=== PATIENT | male | born 1990 | race Caucasian/White ===

== ENCOUNTER 2020-04-26 23:25 | Observation (INO) ==
[2020-04-27] MEDS ORDERED: D5% in 0.45% NACL w KCl 20 MEQ/1,000 ML MLS IVC PRN (03:20)
[2020-04-27] MEDS ORDERED: *HR* Dextrose 50 % in Water (Vial) 50 ML VIAL IVP PRN (03:20)
[2020-04-27] MEDS ORDERED: D5% in 0.45% NACL 1,000 ML IVC PRN (03:20)
[2020-04-27] MEDS ORDERED: Insulin Regular, Human 100 UNIT/ML IV PRN (03:20)
[2020-04-27] MEDS ORDERED: Acetaminophen 325 MG TABLET PO PRN (03:26)
[2020-04-27] MEDS ORDERED: Ondansetron 4 MG/2 ML VIAL IVP PRN (03:26)
[2020-04-27] MEDS ORDERED: Naloxone 0.4 MG/ML INJ IVP PRN (03:28)
[2020-04-27] MEDS ORDERED: Insulin Human Regular 100 UNIT in 0.9 % Sodium Chloride 100 ML IVC SCH (03:30)
[2020-04-27] MEDS ORDERED: 0.9 % Sodium Chloride 1,000 ML IVC SCH (03:30)
[2020-04-27 05:05] LABS: VBG HCO3 26 mEq/L (21-27); VBG PCO2 44 mmHg (41-51); VBG PH 7.38 pH Units (7.32-7.42); VBG PO2 68 mmHg (25-50)
[2020-04-27 05:16] LABS: BUN/Creatinine Ratio 18 (6-26); Blood Urea Nitrogen 16 mg/dL (6-20); Calcium 7.9 mg/dL (8.6-10.3); Carbon Dioxide 25 mEq/L (23-29); Chloride 102 mEq/L (98-107); Glucose 342 mg/dL (70-105); Osmolality,Calculated 291 (280-300); Potassium 4.2 mEq/L (3.5-5.1); Sodium 133 mEq/L (136-145); eGFR For African Americans > 60 (> 60); eGFR For Non-African Americans > 60 (> 60)
[2020-04-27] MEDS: *HR* Heparin 5,000 UNIT/ML VIAL SQ SCH ×3 (05:17→20:30)
[2020-04-27] MEDS: 0.9 % Sodium Chloride w KCl 20 MEQ/1,000 ML MLS IVC SCH ×2 (05:18→15:47)
[2020-04-27 06:43] LABS: VBG HCO3 26 mEq/L (21-27); VBG PCO2 41 mmHg (41-51); VBG PH 7.41 pH Units (7.32-7.42); VBG PO2 238 mmHg (25-50)
[2020-04-27 07:57] LABS: BUN/Creatinine Ratio 18 (6-26); Blood Urea Nitrogen 16 mg/dL (6-20); Carbon Dioxide 24 mEq/L (23-29); Chloride 106 mEq/L (98-107); Glucose 223 mg/dL (70-105); Osmolality,Calculated 290 (280-300); Potassium 3.8 mEq/L (3.5-5.1); Sodium 136 mEq/L (136-145); eGFR For African Americans > 60 (> 60); eGFR For Non-African Americans > 60 (> 60)
[2020-04-27 09:10] LABS: VBG HCO3 27 mEq/L (21-27); VBG PCO2 50 mmHg (41-51); VBG PH 7.34 pH Units (7.32-7.42); VBG PO2 129 mmHg (25-50)
[2020-04-27 09:26] LABS: BUN/Creatinine Ratio 17 (6-26); Blood Urea Nitrogen 15 mg/dL (6-20); Calcium 8.2 mg/dL (8.6-10.3); Carbon Dioxide 26 mEq/L (23-29); Chloride 107 mEq/L (98-107); Glucose 112 mg/dL (70-105); Osmolality,Calculated 288 (280-300); Potassium 3.9 mEq/L (3.5-5.1); Sodium 138 mEq/L (136-145); eGFR For African Americans > 60 (> 60); eGFR For Non-African Americans > 60 (> 60)
[2020-04-27] MEDS ORDERED: Insulin DETEMIR 100 UNIT/ML X5UNITS SUBQ ONE (10:08)
[2020-04-27] MEDS ORDERED: D5% in Water 1,000 ML IVC PRN (10:11)
[2020-04-27] MEDS ORDERED: Dextrose Gel 15 GM/37.5 ML TUBE PO PRN ×2 (10:11)
[2020-04-27 10:42] LABS: Estimated Average Glucose 298 mg/dl
[2020-04-27 11:21] LABS: VBG HCO3 25 mEq/L (21-27); VBG PCO2 43 mmHg (41-51); VBG PH 7.38 pH Units (7.32-7.42); VBG PO2 163 mmHg (25-50)
[2020-04-27 11:42] LABS: BUN/Creatinine Ratio 17 (6-26); Blood Urea Nitrogen 14 mg/dL (6-20); Calcium 7.6 mg/dL (8.6-10.3); Carbon Dioxide 24 mEq/L (23-29); Chloride 105 mEq/L (98-107); Glucose 128 mg/dL (70-105); Osmolality,Calculated 284 (280-300); Potassium 3.8 mEq/L (3.5-5.1); Sodium 136 mEq/L (136-145); eGFR For African Americans > 60 (> 60); eGFR For Non-African Americans > 60 (> 60)
[2020-04-27] MEDS: Insulin LISPRO 300 UNITS/3 ML VIAL SUBQ SCH ×2 (12:49→17:17)
[2020-04-27 13:01] LABS: VBG HCO3 25 mEq/L (21-27); VBG PCO2 45 mmHg (41-51); VBG PH 7.36 pH Units (7.32-7.42); VBG PO2 188 mmHg (25-50)
[2020-04-27 13:17] LABS: BUN/Creatinine Ratio 18 (6-26); Blood Urea Nitrogen 15 mg/dL (6-20); Calcium 7.8 mg/dL (8.6-10.3); Carbon Dioxide 24 mEq/L (23-29); Chloride 105 mEq/L (98-107); Glucose 261 mg/dL (70-105); Osmolality,Calculated 286 (280-300); Potassium 3.9 mEq/L (3.5-5.1); Sodium 133 mEq/L (136-145); eGFR For African Americans > 60 (> 60); eGFR For Non-African Americans > 60 (> 60)
[2020-04-27] MEDS: 0.9 % Sodium Chloride 1,000 ML IVC SCH (15:46)
[2020-04-27] MEDS: 0.45 % Sodium Chloride w/KCl 20 MEQ/1,000 ML MLS IVC SCH (15:47)
[2020-04-27] MEDS: Acetaminophen 325 MG TABLET PO PRN (17:16)
[2020-04-27] MEDS: Gabapentin 400 MG CAPSULE PO SCH (20:30)
[2020-04-27] MEDS ORDERED: Insulin LISPRO 300 UNITS/3 ML VIAL SUBQ SCH (21:00)
[2020-04-28] MEDS: Acetaminophen 325 MG TABLET PO PRN (00:08)
[2020-04-28] MEDS: *HR* Heparin 5,000 UNIT/ML VIAL SQ SCH ×2 (05:34→12:10)
[2020-04-28 06:42] LABS: Basophils % 0.2 %; Hemoglobin 15.2 g/dL (12.9-16.9); Immature Granulocytes % 0.2 % (0-4); Lymphocytes % 18.8 %; Mean Corpuscular HGB Conc 34.5 g/dL (31.6-35.5); Mean Corpuscular Hemoglobin 31.3 pg (28.0-33.3); Mean Corpuscular Volume 90.5 fL (83.0-100.0); Mean Platelet Volume 12.4 fL (9.4-12.4); Monocytes # 0.5 K/mcL (0.0-1.3); Neutrophils # 3.7 K/mcL (1.6-8.9); Platelet Count 101 K/mcL (140-400); Red Blood Count 4.86 M/mcL (4.19-5.50); Red Cell Distribution Width 12.7 % (11.5-14.5); Segmented Neutrophils % 71.8 %; White Blood Count 5.2 K/mcL (4.3-11.1)
[2020-04-28 07:03] LABS: Alanine Aminotransferase 31 Units/L (7-52); Albumin 3.5 g/dL (3.5-5.7); Albumin/Globulin Ratio 1.3 (1.1-2.2); Alkaline Phosphatase 105 Units/L (34-104); Aspartate Amino Transferase 31 Units/L (13-39); BUN/Creatinine Ratio 16 (6-26); Bilirubin,Total 0.5 mg/dL (0.3-1.0); Blood Urea Nitrogen 12 mg/dL (6-20); Calcium 8.3 mg/dL (8.6-10.3); Carbon Dioxide 21 mEq/L (23-29); Chloride 100 mEq/L (98-107); Globulin 2.8 g/dL (2.4-3.5); Glucose 298 mg/dL (70-105); Osmolality,Calculated 281 (280-300); Potassium 4.2 mEq/L (3.5-5.1); Sodium 130 mEq/L (136-145); Total Protein 6.3 g/dL (6.4-8.9); eGFR For African Americans > 60 (> 60); eGFR For Non-African Americans > 60 (> 60)
[2020-04-28 07:24] VITALS: BP 131/72
[2020-04-28] MEDS: Gabapentin 400 MG CAPSULE PO SCH (07:38)
[2020-04-28] MEDS: Insulin LISPRO 300 UNITS/3 ML VIAL SUBQ SCH ×2 (07:41→11:16)
[2020-04-28 08:00] LABS: Large Platelets Present (Not Present); Platelet Estimate Slight Decrease (Normal)
[2020-04-28] MEDS ORDERED: Insulin DETEMIR 100 UNIT/ML X5UNITS SUBQ ONE (08:24)
[2020-04-28] MEDS ORDERED: Insulin DETEMIR 100 UNIT/ML X5UNITS SUBQ SCH (09:00)
[2020-04-29] MEDS ORDERED: Insulin DETEMIR 100 UNIT/ML X5UNITS SUBQ SCH (09:00)
== END 2020-04-28 12:35 | disposition home or self-care (01) ==
LOC: 2NENU → SUATTDRO 04-27 02:47 → 3BNU 04-27 15:45
PROVIDERS: ADMIT Student in an Organized Health Care Education/Training Program; ATTEND Family Medicine

== ENCOUNTER 2020-09-24 17:34 | Observation (INO) ==
[2020-09-24] MEDS ORDERED: Ondansetron 4 MG/2 ML VIAL IVP PRN (20:14)
[2020-09-24] MEDS ORDERED: Naloxone 0.4 MG/ML INJ IVP PRN (20:14)
[2020-09-24] MEDS ORDERED: Melatonin 3 MG TABLET PO PRN (20:14)
[2020-09-24 20:33] LABS: Basophils # 0.1 K/mcL (0.0-0.2); Basophils % 0.9 %; Eosinophils # 0.1 K/mcL (0.0-0.6); Eosinophils % 1.6 %; Hematocrit 45.6 % (37.5-50.1); Hemoglobin 16.2 g/dL (12.9-16.9); Immature Granulocytes % 0.3 % (0-4); Lymphocytes # 2.3 K/mcL (0.6-4.6); Mean Corpuscular HGB Conc 35.5 g/dL (31.6-35.5); Mean Corpuscular Hemoglobin 31.1 pg (28.0-33.3); Mean Corpuscular Volume 87.5 fL (83.0-100.0); Mean Platelet Volume 12.2 fL (9.4-12.4); Monocytes # 0.7 K/mcL (0.0-1.3); Neutrophils # 5.6 K/mcL (1.6-8.9); Nucleated Red Blood Cells 0.2 /100 WBC (0); Platelet Count 171 K/mcL (140-400); Red Blood Count 5.21 M/mcL (4.19-5.50); Red Cell Distribution Width 12.3 % (11.5-14.5); Segmented Neutrophils % 63.2 %; White Blood Count 8.9 K/mcL (4.3-11.1)
[2020-09-24 20:37] LABS: VBG HCO3 28 mEq/L (21-27); VBG PCO2 50 mmHg (41-51); VBG PH 7.35 pH Units (7.32-7.42); VBG PO2 35 mmHg (25-50)
[2020-09-24 20:56] LABS: BUN/Creatinine Ratio 15 (6-26); Blood Urea Nitrogen 16 mg/dL (6-20); Calcium 8.8 mg/dL (8.6-10.3); Carbon Dioxide 24 mEq/L (23-29); Chloride 97 mEq/L (98-107); Glucose 342 mg/dL (70-105); Osmolality,Calculated 285 (280-300); Potassium 4.2 mEq/L (3.5-5.1); Sodium 130 mEq/L (136-145); eGFR For African Americans > 60 (> 60); eGFR For Non-African Americans > 60 (> 60)
[2020-09-24] MEDS ORDERED: Isovue-370 500 ML BOTTLE IVP ONE (21:43)
[2020-09-24] MEDS ORDERED: D5% in Water 1,000 ML IVC PRN (21:45)
[2020-09-24] MEDS ORDERED: Acetaminophen 325 MG TABLET PO PRN (21:45)
[2020-09-24] MEDS ORDERED: *HR* Dextrose 50 % in Water (Vial) 50 ML VIAL IVP PRN (21:45)
[2020-09-24] MEDS ORDERED: Dextrose Gel 15 GM/37.5 ML TUBE PO PRN ×2 (21:45)
[2020-09-24] MEDS ORDERED: *HR* HYDROcodone/Acet 5/325 mg TABLET PO PRN (21:45)
[2020-09-24] MEDS ORDERED: Insulin DETEMIR 100 UNIT/ML X5UNITS SUBQ SCH (22:00)
[2020-09-24] MEDS ORDERED: Insulin LISPRO 300 UNITS/3 ML VIAL SUBQ SCH (22:07)
[2020-09-24] MEDS: *HR* OxyCODONE Immed Rel 5 MG TABLET PO PRN (22:32)
[2020-09-25 00:01] LABS: Estimated Average Glucose 352 mg/dl; Hemoglobin A1C 13.9 %
[2020-09-25] MEDS: Clotrimazole 1% CRM 15 GM TUBE TP SCH ×2 (04:27→10:42)
[2020-09-25] MEDS: *HR* OxyCODONE Immed Rel 5 MG TABLET PO PRN (04:32)
[2020-09-25] MEDS ORDERED: *HR* Heparin 5,000 UNIT/ML VIAL SQ SCH (06:00)
[2020-09-25 06:54] LABS: Basophils # 0.1 K/mcL (0.0-0.2); Basophils % 1.1 %; Eosinophils # 0.3 K/mcL (0.0-0.6); Eosinophils % 3.8 %; Hematocrit 42.2 % (37.5-50.1); Hemoglobin 14.9 g/dL (12.9-16.9); Immature Granulocytes % 0.2 % (0-4); Lymphocytes % 30.1 %; Mean Corpuscular HGB Conc 35.3 g/dL (31.6-35.5); Mean Corpuscular Hemoglobin 30.9 pg (28.0-33.3); Mean Corpuscular Volume 87.6 fL (83.0-100.0); Mean Platelet Volume 12.4 fL (9.4-12.4); Monocytes # 0.4 K/mcL (0.0-1.3); Monocytes % 6.7 %; Neutrophils # 3.8 K/mcL (1.6-8.9); Platelet Count 162 K/mcL (140-400); Red Blood Count 4.82 M/mcL (4.19-5.50); Red Cell Distribution Width 12.8 % (11.5-14.5); Segmented Neutrophils % 58.1 %; White Blood Count 6.6 K/mcL (4.3-11.1)
[2020-09-25 06:55] VITALS: BP 131/94
[2020-09-25] MEDS ORDERED: Insulin LISPRO 300 UNITS/3 ML VIAL SUBQ SCH ×2 (07:30→21:00)
== END 2020-09-25 11:43 | disposition home or self-care (01) ==
LOC: 2NNU → SUATTDRO 19:46 → 2ANU 09-25 08:27
PROVIDERS: ADMIT Internal Medicine; ATTEND Internal Medicine